=== PATIENT | male | born 1990 | race Hispanic/Latino ===

== ENCOUNTER 2018-11-28 00:29 | Emergency (ER) | payer OTHER | END 2018-11-28 00:43 | disposition home or self-care (01) | LOC: EDH 00:29 | DX: F10.10 Alcohol abuse, uncomplicated (principal); F41.9 Anxiety disorder, unspecified | CPT/HCPCS: 99281 ==

== ENCOUNTER 2022-05-02 18:50 | Emergency (ER) | payer OTHER ==
[~2022-05-02] VITALS: Ht 167.6 cm; Wt 84.4 kg
[2022-05-02] MEDS ORDERED: FLUT16H NASAL (21:12)
[2022-05-02] MEDS ORDERED: AZIT250T9 PO (21:12)
[2022-05-02] MEDS ORDERED: LORA10TA7 PO (21:12)
[2022-05-02 21:15] VITALS: BP 135/80
[2022-05-02] MEDS ORDERED: DEXAMETHASONE SOD PHOSPHATE 4 MG/ML 1ML VIAL ONE (21:21)
[2022-05-02] MEDS ORDERED: DEXAMETHASONE SOD PHOSPHATE 4 MG/ML 1ML VIAL IM ONE (21:30)
== END 2022-05-02 21:31 | disposition home or self-care (01) ==
LOC: EDH 18:50
DX: J01.90 Acute sinusitis, unspecified (principal); Z20.822 Contact with and (suspected) exposure to COVID-19
CPT/HCPCS: 99285; 70450; 87635; 87804 ×2; 96372; J1100; C9803

== ENCOUNTER 2022-05-23 17:53 | Emergency (ER) | payer OTHER ==
[~2022-05-23] VITALS: Ht 175.3 cm; Wt 83.9 kg
[~2022-05-23 17:53] MED LIST: AZIT250T9 PO; FLUT16H NASAL; LORA10TA7 PO
[2022-05-23 18:48] LABS: BASOPHILS % (AUTO) 0.5 % (0.0-5.0); EOSINOPHILS % (AUTO) 1.5 % (0.0-8.0); HEMATOCRIT 40.3 % (42-54); LYMPHOCYTES % (AUTO) 21.2 % (21.0-51.0); MEAN CORPUSCULAR HEMOGLOBIN 31.1 pg (27.0-33.0); MEAN CORPUSCULAR HGB CONC 35.2 g/dL (32.0-36.0); MEAN CORPUSCULAR VOLUME 88.2 fL (79-99); MONOCYTES % (AUTO) 4.7 % (3.0-13.0); NEUTROPHILS % (AUTO) 71.6 % (40.0-77.0); PLATELET COUNT (AUTO) 324 K/uL (130-400); RED BLOOD CELL COUNT(AUTO) 4.57 MIL/uL (4.50-6.20)
[2022-05-23] MEDS ORDERED: IOHEXOL 350 MG/ML 100ML INFUS..BTL IV ONE (18:56)
[2022-05-23 19:11] LABS: POTASSIUM 3.6 mmol/L (3.5-5.1)
[2022-05-23] MEDS ORDERED: CYCL-309 PO (20:05)
[2022-05-23] MEDS ORDERED: IBUP-1493 PO (20:05)
[2022-05-23 20:21] VITALS: BP 111/61
== END 2022-05-23 20:24 | disposition home or self-care (01) ==
LOC: EDH 17:53
DX: S09.90XA Unspecified injury of head, initial encounter (principal); S60.222A Contusion of left hand, initial encounter; M79.662 Pain in left lower leg; M79.661 Pain in right lower leg; Z79.899 Other long term (current) drug therapy; V89.2XXA Person injured in unspecified motor-vehicle accident, traffic, initial encounter; Y93.89 Activity, other specified; Y92.89 Other specified places as the place of occurrence of the external cause; Y99.8 Other external cause status
CPT/HCPCS: 99285; 70450; 82550; 84484; 80053; 85025; 36415; 73130; 73552; 73562; 73590 ×2; 72125; 71260; 74177; 93005; Q9967